=== PATIENT | female | born 1990 | race American Indian/Alaskan Native ===

== ENCOUNTER 2016-07-09 11:30 | Inpatient (IN) | payer MEDICAID ==
[2016-07-11] MEDS ORDERED: PITOCin/NS 20 UNIT/1000ML DRIP 1,000 ML IV SCH ×2 (05:30→12:33)
[2016-07-11] MEDS ORDERED: BICITRA PO SCH (05:30)
[2016-07-11] MEDS ORDERED: ANCEF/STERILE WATER 2 GM/20 ML 20 ML IV NR (05:30)
[2016-07-11] MEDS ORDERED: PEPCID IV SCH (05:30)
[2016-07-11] MEDS ORDERED: REGLAN IV SCH (05:30)
[2016-07-11] MEDS: LACTATED RINGERS 1,500 ML IV NR ×2 (06:30→07:39)
[2016-07-11 07:18] LABS: Hematocrit 35.7 % (30.3-42.9); Hemoglobin 11.8 gm/dl (10.1-14.3); Mean Corpuscular HGB Conc 33 % (30-34); Mean Corpuscular Hemoglobin 30 pg (28-32); Mean Corpuscular Volume 89 fl (79-97); Platelet Count 232 K/mm3 (140-440); Red Cell Distribution Width 13.6 % (13.2-15.2); White Blood Count 4.9 K/mm3 (4.5-11.0)
--- NOTE | 2016-07-11 07:21 | Anesthesia Consultation ---
Anesthesia Consult and Med Hx Date of service: 07/11/16 - Airway Anesthetic Teeth Evaluation: Good (slightly chipped # 9) ROM Head & Neck: Adequate Mental/Hyoid Distance: Adequate Mallampati Class: Class II Intubation Access Assessment: Probably Good - Pre-Operative Health Status ASA Pre-Surgery Classification: ASA2 Proposed Anesthetic Plan: Spinal - Pulmonary Hx Asthma: No COPD: No Hx Pneumonia: No - Cardiovascular System Hx Hypertension: No - Central Nervous System Hx Seizures: No Hx Psychiatric Problems: No - Endocrine Hx Renal Disease: No Hx End Stage Renal Disease: No Hx Hypothyroidism: No Hx Hyperthyroidism: No - Hematic Hx Anemia: No Hx Sickle Cell Disease: No - Other Systems Hx Alcohol Use: No
--- NOTE | 2016-07-11 07:22 | Anesthesia Day of Surgery ---
Anesthesia Day of Surgery - Day of Surgery Patient Examined: Yes Patient H&P Reviewed: Yes Patient is NPO: Yes
--- NOTE | 2016-07-11 07:32 | History and Physical Report ---
History of Present Illness Date of examination: 07/11/16 Date of admission: 07/11/16 05:45 Chief complaint: Repeat C/S History of present illness: Past History : 4 Term Births: 2 Living Children: 2 Para: 2 Aborta: 1 Spont. 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 Past Medical History: Reviewed history from 12/10/2013 and no changes required: Negative Past Medical History Past Surgical History: Reviewed history from 06/08/2013 and no changes required: negative Past Medical History Anesthesia Complications: negative Anemia: negative Autoimmune Disorder: negative Bleeding Disorder: negative Blood Transfusions: negative Breast Disease: negative Diabetes: negative Heart Disease: negative Hypertension: negative Hepatitis/Liver Disease: negative Kidney Disease/UTI: negative Neurologic/Epilepsy/Migraines: negative Phlebitis/Varicosities: negative Psychiatric: negative Pulmonary Disease/Asthma: negative Thyroid Disease: negative Hospitalizations: negative Surgery (Non-securities dealer): negative Abnormal PAP: negative HALEY Exposure: negative Infertility: negative Uterine Anomaly: negative Uterine Surgery (not C/S): negative Other Gynecologic Problems: negative Social Hx: Patient is Smoking History: Patient has never smoked. Infection History Hx of STD: none HIV Risk Eval: no Hepatitis B Risk Eval: low risk Personal hx. of genital herpes: no Partner hx. of genital herpes: no Rash, Viral, or Febrile illness since last LMP? no Varicella/Chicken Pox Status: Previous Disease Genetic History Congenital Heart Defect: Mom: no Dad: no Jose Disease: Mom: no Dad: no Thalassemia Mom: no Dad: no Neural Tube Defect Mom: no Dad: no Down's Syndrome Mom: no Dad: no Zenon-Sachs Mom: no Dad: no Sickle Cell Disease/Trait Mom: no Dad: no Hemophilia Mom: no Dad: no Muscular Dystrophy Mom: no Dad: no Cystic Fibrosis Mom: no Dad: no Barnes Chorea Mom: no Dad: no Mental Retardation Mom: no Dad: no Fragile X Mom: no Dad: no Other Genetic/Chromosomal Disorder Mom: no Dad: no Child w/other defect Mom: no Dad: no Enviromental Exposures Xray Exposure: no Medication, drug, or alcohol use since LMP: no Chemical/Other Exposure: no Exposure to Cat Liter: no Hx of Parvovirus (Fifth Disease): no Occupational Exposure to Children: none Active Medications (reviewed today): None Current Allergies (reviewed today): No known allergies Past History - Obstetrical History Expected Date of Delivery: 07/14/16 Actual Gestation: 39 Week(s) 4 Day(s) : 4 Medications and Allergies Allergies Allergy/AdvReac Type Severity Reaction Status Date / Time No Known Allergies Allergy Unverified 12/14/13 08:45 Home Medications Medication Instructions Recorded Confirmed Last Taken Type Ibuprofen [Motrin 800 MG tab] 800 mg PO TID PRN #30 tablet 12/14/13 Unknown Rx Lidocain2.5%/Prilocai2.5% [Emla] 5 gm TP ONCE #1 tube 12/14/13 Unknown Rx oxyCODONE /ACETAMINOPHEN [Percocet 1 - 2 tab PO Q4HR PRN #30 tablet 12/14/13 Unknown Rx 5/325 mg] Pnv #116/Iron Fumarate/FA/Dha 1 each PO DAILY 12/16/13 12/16/13 12/13/13 23:00 History [Expecta Combo Pack] 325 Active Meds: Active Medications Citric Acid/Sodium Citrate (Bicitra) 30 ml PO ONCE WESTON Stop: 07/11/16 23:31 Diphenhydramine HCl (Benadryl) 12.5 mg IV Q2H PRN PRN Reason: Itching Famotidine (Pepcid) 20 mg IV ONCE WESTON Stop: 07/11/16 23:31 Hydromorphone HCl (Dilaudid) 0.5 mg IV Q4H PRN PRN Reason: breakthrough pain > 7/10 Cefazolin Sodium (Ancef/Sterile Water 2 Gm/20 Ml) 20 mls @ 80 mls/hr IV PREOP NR PRN Reason: Protocol Stop: 07/11/16 23:31 Lactated Ringer's (Lactated Ringers) 1,500 mls @ 2,250 mls/hr IV PREOP NR Stop: 07/11/16 23:31 Last Admin: 07/11/16 06:30 Dose: 999 mls/hr Oxytocin/Sodium Chloride (Pitocin/Ns 20 Unit/1000ml Drip) 1,000 mls @ 0 mls/hr IV TITR WESTON PRN Reason: Per Protocol Influenza Virus Vaccine Quadrival (Fluarix Quad [id number](36 Mos+)) 60 mcg IM .ONCE ONE Stop: 07/11/16 12:01 Ketorolac Tromethamine (Toradol) 30 mg IV Q6H PRN PRN Reason: Pain, Moderate (4-6) Stop: 07/16/16 07:22 Metoclopramide HCl (Reglan) 10 mg IV ONCE WESTON Stop: 07/11/16 23:31 Naloxone HCl (Narcan 0.4 Mg/1 Ml) 0.2 mg IV Q2MIN PRN PRN Reason: Res Rate </= 8 or 02 SAT < 92% Stop: 07/13/16 07:23 Ondansetron HCl (Zofran) 4 mg IV Q8H PRN PRN Reason: Nausea And Vomiting Sodium Chloride (Sodium Chloride Flush Syringe 10 Ml) 10 ml IV PRN NR - Vital Signs Vital signs: Vital Signs Pulse Pulse Ox 64 100 07/11/16 06:25 07/11/16 06:25 Temp Pulse Resp BP Pulse Ox 74 100 07/11/16 07:25 07/11/16 07:25 - Physical Exam Breasts: Positive: deferred Cardiovascular: Regular rate Lungs: Positive: Normal air movement Abdomen: Positive: normal appearance Uterus: Positive: enlarged Extremities: Positive: normal Deep Tendon Reflex Grade: Normal +2 Results Result Diagrams: 07/11/16 06:30 All other labs normal. Assessment and Plan - Patient Problems (1) 39 weeks gestation of Current Visit: No Status: Acute (2) Maternal care due to low transverse uterine scar from previous delivery Current Visit: Yes Status: Acute Plan to address problem: Desires repeat c/s, she declines sterilization. Consents signed. She was informed she has an increased risks for complications that may be fatal with each subsrquent c/s
[2016-07-11] MEDS ORDERED: SODIUM CHLORIDE FLUSH SYRINGE 10 ML IV PRN (08:00)
[2016-07-11] MEDS ORDERED: ZOFRAN IV PRN (08:00)
[2016-07-11] MEDS ORDERED: DILAUDID IV PRN (08:00)
[2016-07-11] MEDS ORDERED: BENADRYL IV PRN (08:00)
[2016-07-11] MEDS ORDERED: NARCAN 0.4 MG/1 ML IV PRN ×2 (08:00→12:33)
[2016-07-11] MEDS ORDERED: MORPHINE ONE (08:01)
[2016-07-11] MEDS ORDERED: WATER FOR IRRIG STERILE IR ONE (08:06)
[2016-07-11] MEDS ORDERED: NACL 0.9% IR ONE (08:06)
[2016-07-11] MEDS ORDERED: ePHEDrine SULFATE ONE (08:19)
--- NOTE | 2016-07-11 09:18 | Operative Report ---
Operative Report Operative Report: Date of procedure: 07/11/2016 Pre-operative diagnosis: 1. Intrauterine at 39 weeks 2. Previous desires repeat Post-operative diagnosis: 1. Intrauterine at 39 weeks 2. Previous desires repeat Procedure name(s): Low transverse section Surgeon: Deysi Daley MD Residential Sales Associate: [] Anesthesia: Spinal epidural EBL: 800 mL Complications: None Findings: Liveborn female infant. Apgars 8 at 1 minute 9 at 5 minutes. Weight 6 lbs. 12 oz. Grossly normal uterus, tubes, ovaries, Procedure: After risks, benefits, and complications and alternatives and consequences, were discussed with patient, and she voiced her understanding and desired to proceed. Patient was taken to the OR, where spinal anesthesia was placed. She was then placed in the left lateral tilt position, and prepped and draped in the usual sterile fashion. After timeout was performed, a Pfannenstiel incision was made and extended to the fascia. The fascia was incised and extended in a lateral direction. The overlying fascia was sharply dissected away from the underlying rectus muscles in the superior-inferior direction. The midline was entered bluntly. The vesicouterine fold was incised and with blunt and sharp dissection the bladder flap was created. A transverse incision was made in the lower uterine segment and extended in the superior lateral direction with finger fractionation. Clear fluid was noted. The was delivered from the cephalic position.The cord was doubly clamped and cut. The 's mouth and nose were bulb suctioned. And the infant was given to the resuscitation team present. The placenta was manually extracted. The uterus was exteriorized and cleaned any products of conception and placental tissue. The incision was reapproximated using 0 Vicryl in a running interlocking stitch. Grossly normal tubes and ovaries were noted. Once hemostasis was noted, the uterus was allowed back into the pelvic cavity. The pelvis was irrigated with warm normal saline. Once hemostasis was noted, Tisseel was applied to the anterior surface of the incision. Once hemostasis was noted, attention was turned to the rectus muscles. Once hemostasis was noted, the fascia was reapproximated using 0 Vicryl in a simple running stitch. Once hemostasis was noted, the incision was irrigated with normal saline. The incision was then reapproximated using 4-0 Vicryl on a Elder needle in a subcuticular manner. Patient tolerated the procedure well she was taken to recovery room in stable condition. Counts were correct 3
--- NOTE | 2016-07-11 10:08 | Post Anesthesia Evaluation ---
- Post Anesthesia Evaluation Patient Participated: Yes Airway Patent: Yes Stable Respiratory Function: Yes Temp > 96.8F: Yes Pain Manageable: Yes Adequeate Hydration: Yes Anesthesia Complications: No Block Receding Appropriately: Yes
[2016-07-11] MEDS: TORADOL IV PRN ×2 (10:31→17:30)
[2016-07-11] MEDS ORDERED: FLUARIX QUAD 2016-2017(36 MOS+) IM ONE (12:00)
[2016-07-11] MEDS ORDERED: PROAIR IH ONE (12:30)
[2016-07-11] MEDS ORDERED: TYLENOL PO PRN (12:33)
[2016-07-11] MEDS ORDERED: MILK OF MAGNESIA PO PRN (12:33)
[2016-07-11] MEDS ORDERED: PHENERGAN PR PRN (12:33)
[2016-07-11] MEDS ORDERED: MYLICON PO PRN (12:33)
[2016-07-11] MEDS ORDERED: D5LR 1,000 ML IV SCH (12:33)
[2016-07-11] MEDS ORDERED: SENOKOT PO PRN (12:33)
[2016-07-11] MEDS ORDERED: TUCKS PAD TP PRN (12:33)
[2016-07-11] MEDS ORDERED: LANSINOH TP PRN (12:33)
[2016-07-11] MEDS ORDERED: TYLENOL PR PRN (12:33)
[2016-07-11] MEDS ORDERED: SODIUM CHLORIDE FLUSH SYRINGE 10 ML IV NR (12:33)
[2016-07-11] MEDS ORDERED: ANUCORT-HC PR PRN (12:33)
[2016-07-11] MEDS: ANCEF/NS 1 GM/50 ML 50 ML IV SCH (16:25)
[2016-07-11 22:22] LABS: Hemoglobin 11.1 gm/dl (10.1-14.3)
[2016-07-12] MEDS: ANCEF/NS 1 GM/50 ML 50 ML IV SCH (01:23)
[2016-07-12] MEDS: TORADOL IV PRN (01:24)
[2016-07-12] MEDS ORDERED: BOOSTRIX IM ONE (06:00)
--- NOTE | 2016-07-12 08:16 | Progress Note ---
Assessment and Plan Patient reports feeling well, no complaints. H&H , VSSAF, lochia scant, ambulating without difficulty. Plan for d/c home tomorrow if stable. - Patient Problems (1) delivery delivered Current Visit: No Status: Acute Subjective - Subjective Date of service: 07/12/16 Principal diagnosis: postop day #1, s/p repeat c/s Patient reports: appetite normal, voiding normally, pain well controlled, flatus , ambulating normally, no dizzy ambulation, no bowel movement, no nauseated : doing well, nursing well Objective - Vital Signs Latest vital signs: Vital Signs Temp Pulse Pulse Resp BP BP 07/12/16 05:25 98.3 F 62 24 103/64 07/12/16 00:16 98.8 F 85 20 110/72 07/11/16 20:25 98.3 F 66 20 118/80 07/11/16 16:02 97.9 F 66 18 118/70 07/11/16 10:45 97.4 F L 50 L 18 143/80 07/11/16 10:31 15 07/11/16 10:15 53 L 12 130/78 07/11/16 10:00 51 L 12 123/75 07/11/16 09:50 12 131/74 07/11/16 09:45 52 L 12 122/76 07/11/16 09:40 55 L 12 122/76 07/11/16 09:35 53 L 12 127/73 07/11/16 09:30 58 L 12 121/75 07/11/16 09:25 58 L 13 121/71 07/11/16 09:20 62 14 121/70 07/11/16 09:15 97.5 F L 74 12 122/65 Intake and Output 07/11/16 07/12/16 07/12/16 22:59 06:59 14:59 Intake Total 360 480 Output Total 750 800 Balance -390 -320 Intake: Oral 360 240 Intake, Free Water 240 Output: Urine 750 800 Indwelling Catheter 750 800 Other: Total, Intake Amount 360 240 Total, Output Amount 750 800 - Exam Breasts: Present: normal, Cardiovascular: Present: Regular rate Lungs: Present: Clear to auscultation, Normal air movement Abdomen: Present: normal appearance, soft Vulva: both: normal Uterus: Present: normal, firm, fundal height at umbilicus Extremities: Present: normal Deep Tendon Reflex Grade: Normal +2 Incision: Present: normal, dry, intact
[2016-07-12] MEDS: MOTRIN PO PRN ×2 (08:55→13:45)
[2016-07-12] MEDS: PERCOCET 5/325 PO PRN ×3 (08:55→20:37)
--- NOTE | 2016-07-12 09:56 | Progress Note ---
Subjective Date of service: 07/12/16 Principal diagnosis: postop day #1, s/p repeat c/s Interval history: 1st POD after Patient is in the bed, comfortable. Ambulated well. Pain is well controlled with pain meds. No residual neurological deficit. No anesthesia complications Objective - Constitutional Vitals: Vital Signs - 12hr 07/12/16 07/12/16 07/12/16 00:16 05:25 08:13 Temperature 98.8 F 98.3 F 98.3 F Pulse Rate [ 85 62 76 Right Radial] Respiratory 20 24 16 Rate Blood Pressure 110/72 103/64 126/66 [Right Arm] - Labs CBC & Chem 7: 07/11/16 21:29
[2016-07-13] MEDS: MOTRIN PO PRN ×2 (06:18→13:03)
--- NOTE | 2016-07-13 09:59 | Progress Note ---
Assessment and Plan Patient without complaints this morning, reports good success with and normal discomfort during ambulation. VSSAF, Lochia scant, incision intact with some serosanginous drainage but no active bleeding. discussed wound care. Patient would like to stay tonight and go home early tomorrow morning, around 7am. Will continue postop pathway and d/c in AM. f/u scheduled in 1 week. - Patient Problems (1) delivery delivered Current Visit: No Status: Acute Subjective - Subjective Date of service: 07/13/16 Principal diagnosis: postop day #2, s/p repeat c/s Patient reports: appetite normal, voiding normally, pain well controlled, flatus , ambulating normally, no dizzy ambulation, no nauseated : doing well, nursing well Objective - Vital Signs Latest vital signs: Vital Signs Temp Pulse Pulse Resp BP 07/13/16 08:07 98.7 F 80 20 108/52 07/13/16 06:18 18 07/13/16 01:00 98.4 F 71 16 106/62 07/12/16 20:37 18 07/12/16 15:47 98.2 F 65 14 111/66 Intake and Output 07/12/16 07/13/16 07/13/16 22:59 06:59 14:59 Intake Total 240 Balance 240 Intake: Oral 240 Other: Total, Intake Amount 240 # Voids Void 1 - Exam Breasts: Present: normal Cardiovascular: Present: Regular rate Lungs: Present: Clear to auscultation, Normal air movement Abdomen: Present: normal appearance, soft Vulva: both: normal Uterus: Present: normal, firm, fundal height at umbilicus Extremities: Present: normal Incision: Present: normal, dry (steristrips noted to have some drainage, no active bleeding from incision, appears to be intact.), intact
--- NOTE | 2016-07-13 10:03 | Discharge Summary ---
Providers - Providers Date of Admission: 07/11/16 05:45 Date of discharge: 07/14/16 Attending physician: MAXWELL PAZ 07/11/16 12:33 Consult to Muck Hauler [CONS] Routine Reason For Exam: Primary care physician: MAXWELL PAZ Hospitalization Reason for admission: section Delivery: Procedure: repeat low transverse Incision: normal, intact Other procedures: none complications: none Discharge diagnosis: IUP at term delivered [place] baby: female Hospital course: uncomplicated c/s delivery Condition at discharge: Good Disposition: DISCHARGED TO HOME OR SELFCARE - Discharge Diagnoses (1) delivery delivered Status: Acute Plan - Discharge Medications Prescriptions: Ibuprofen [Motrin 800 MG tab] 800 mg PO TID PRN #30 tablet PRN Reason: Pain oxyCODONE /ACETAMINOPHEN [Percocet 5/325 mg] 1 - 2 tab PO Q4HR PRN #30 tablet PRN Reason: Pain - Provider Discharge Summary Activity: routine, no sex for 6 weeks, no heavy lifting 4 weeks, no strenuous exercise Diet: routine Instructions: routine Additional instructions: [] Smoking cessation referral if applicable(refer to patient education folder for contact #) [] Refer to [facility]'s [facility] Booklet Call your doctor immediately for: * Fever > 100.5 * Heavy vaginal bleeding ( >1 pad per hour) * Severe persistent headache * Shortness of breath * Reddened, hot, painful area to leg or breast * Drainage or odor from incision. * Keep incision clean and dry at all times and follow doctor's instructions regarding bathing/showering - Follow up plan Follow up: MAXWELL PAZ MD [Primary Care Provider] - 7 Days (Congratulations! Please keep your incision check appointment in 1 week. Call [phone] for any questions or concerns. )
[2016-07-13] MEDS ORDERED: FLUARIX QUAD 2016-2017(36 MOS+) IM ONE (12:00)
[2016-07-13] MEDS: PERCOCET 5/325 PO PRN ×2 (13:02→21:50)
[2016-07-14] MEDS: MOTRIN PO PRN ×2 (04:05→11:00)
[2016-07-14] MEDS: PERCOCET 5/325 PO PRN ×2 (04:05→11:00)
[2016-07-14 12:21] VITALS: BP 108/60
== END 2016-07-14 13:45 | disposition home or self-care (01) | DRG 766 ==
LOC: APU 07-11 05:45 → OB 07-11 10:47
PROVIDERS: ADMIT Obstetrics & Gynecology; ATTEND Obstetrics & Gynecology
PROC: 10D00Z1 Extraction of Products of Conception, Low, Open Approach (ICD-10-PCS; principal; 2016-07-11)
PROC: 00HU33Z Insertion of Infusion Device into Spinal Canal, Percutaneous Approach (ICD-10-PCS; 2016-07-11)
PROC: 3E0R3CZ (ICD-10-PCS; 2016-07-11)
DX: O34.211 Maternal care for low transverse scar from previous cesarean delivery (principal); Z3A.39 39 weeks gestation of pregnancy; Z37.0 Single live birth
CPT/HCPCS: 36415; 85014; 85018; 85027; 86592; 86850; 86900; 86901; 90471; 90686; 90715; 99211; A6250; C9250; G0008; G0463; J0690; J1170; J1885; J2270; J2590; J2765; J7120

== ENCOUNTER 2017-02-23 01:57 | Emergency (ER) | payer MEDICAID ==
[2017-02-23] MEDS ORDERED: MOTRIN PO ONE (03:58)
[2017-02-23] MEDS ORDERED: MOTRIN ONE (04:03)
[2017-02-23] MEDS ORDERED: AUGMENTIN 875 MG PO ONE (06:37)
--- NOTE | 2017-02-23 06:40 | Emergency Department Report ---
HPI - General Chief Complaint: Earache Time Seen by Provider: 02/23/17 06:36 - HPI HPI: This is a 26-year-old female presents to the emergency department with complaint of right ear pain and a sensation of wetness within the right ear that has been going on since yesterday. She denies any fever, nausea, vomiting , sore throat, chest pain, shortness of breath, cough. She denies any history of ear infections or tympanostomy tubes as a child. She does not currently have a primary care physician. She did not take anything for her symptoms prior to presentation. No recent travel or sick contacts at home. ED Past Medical Hx - Past Medical History Previous Medical History?: No Hx Hypertension: No Hx Congestive Heart Failure: No Hx Diabetes: No Hx Deep Vein Thrombosis: No Hx Renal Disease: No Hx Sickle Cell Disease: No Hx Seizures: No Hx Asthma: No Hx COPD: No Hx HIV: No - Surgical History Past Surgical History?: No Additional Surgical History: x 2. - Social History Smoking Status: Never Smoker Substance Use Type: None - Medications Home Medications: Home Medications Medication Instructions Recorded Confirmed Last Taken Type Ibuprofen [Motrin 800 MG tab] 800 mg PO TID PRN #30 tablet 12/14/13 07/13/16 Unknown Rx Lidocain2.5%/Prilocai2.5% [Emla] 5 gm TP ONCE #1 tube 12/14/13 07/13/16 Unknown Rx oxyCODONE /ACETAMINOPHEN [Percocet 1 - 2 tab PO Q4HR PRN #30 tablet 12/14/13 Unknown Rx 5/325 mg] Pnv #116/Iron Fumarate/FA/Dha 1 each PO DAILY 12/16/13 07/13/16 12/13/13 23:00 History [Expecta Combo Pack] 325 Ibuprofen [Motrin 800 MG tab] 800 mg PO TID PRN #30 tablet 07/11/16 Unknown Rx oxyCODONE /ACETAMINOPHEN [Percocet 1 - 2 tab PO Q4HR PRN #30 tablet 07/11/16 Unknown Rx 5/325 mg] Amoxicillin/K Clav Tab [Augmentin 1 each PO BID #20 tablet 02/23/17 Unknown Rx 875MG TAB] ED Review of Systems ROS: Stated complaint: RT EAR PAIN Other details as noted in HPI Comment: All other systems reviewed and negative Constitutional: denies: chills, fever Eyes: denies: eye pain, eye discharge, vision change ENT: ear pain. denies: dental pain Respiratory: denies: cough, shortness of breath, wheezing Cardiovascular: denies: chest pain, palpitations Gastrointestinal: denies: abdominal pain, nausea, diarrhea Genitourinary: denies: urgency, dysuria, discharge Musculoskeletal: denies: back pain, joint swelling, arthralgia Skin: denies: rash, lesions Neurological: denies: headache, weakness, paresthesias Physical Exam - Physical Exam Vital Signs: Vital Signs 02/23/17 03:46 Temperature 98.4 F Pulse Rate 75 Respiratory 12 Rate Blood Pressure 111/76 Blood Pressure 111/76 [Left] O2 Sat by Pulse 100 Oximetry Physical Exam: GENERAL: The patient is well-developed well-nourished. HENT: Normocephalic. Atraumatic. Patient has moist mucous membranes. Normal -appearing left external ear canal and tympanic membrane. Normal-appearing right external ear canal. The right tympanic membrane is abnormal in appearance. The bottom one third of the TM appears dark and as if there is blood behind the TM or there is an eschar that is formed. In the middle of the TM, heading superior and anterior, there is a streak of what appears to be purulence. The remaining portion of the TM is very erythematous and there is no visible light reflex. EYES: Extraocular motions are intact. Pupils equal reactive to light bilaterally. NECK: Supple. Trachea is midline. There is a small tender nodule just below the right ear that is most likely consistent with a lymph node as it appears mobile and is only a few millimeters in diameter. CHEST/LUNGS: Clear to auscultation. There is no respiratory distress noted. HEART/CARDIOVASCULAR: Regular. There is no tachycardia. There is no gallop rub or murmur. ABDOMEN: Abdomen is soft, nontender. Patient has normal bowel sounds. There is no abdominal distention. SKIN: Skin is warm and dry. NEURO: The patient is awake, alert, and oriented. The patient is cooperative. The patient has no focal neurologic deficits. The patient has normal speech. MUSCULOSKELETAL: There is no tenderness or deformity. There is no limitation range of motion. There is no evidence of acute injury. ED Course Vital Signs 09/03/17 03:46 Temperature 98.4 F Pulse Rate 75 Respiratory 12 Rate Blood Pressure 111/76 Blood Pressure 111/76 [Left] O2 Sat by Pulse 100 Oximetry ED Medical Decision Making - Medical Decision Making 26-year-old female presents with some right ear pain and a feeling of wetness or moisture within the ear. No fever and vital signs are stable. On physical exam the patient does have an abnormal-appearing right tympanic membrane with a darkness in the lower portion that could be blood behind the eardrum versus an eschar and a streak within the middle of the eardrum and it looks to be some type of purulence. She was given a dose of antibiotics here and placed on a course of antibiotics for home. She was given 3 different ear nose throat physicians for follow-up and told to do so as soon as possible. She will return to the ER with any worsening of her symptoms or any acute distress. - Differential Diagnosis otitis media, otitis externa, malignancy, perforation Critical Care Time: No Critical care attestation.: If time is entered above; I have spent that time in minutes in the direct care of this critically ill patient, excluding procedure time. ED Disposition Clinical Impression: Otitis media Qualifiers: Otitis media type: suppurative Chronicity: acute Laterality: right Recurrence: not specified as recurrent Spontaneous tympanic membrane rupture: without spontaneous rupture Qualified Code(s): H66.001 - Acute suppurative otitis media without spontaneous rupture of ear drum, right ear Disposition: DC-01 TO HOME OR SELFCARE Is pt being admited?: No Condition: Stable Instructions: Otitis Media (ED) Additional Instructions: Please follow up with an ENT (Ear, Nose Throat) physician as soon as possible. Also follow-up with your primary care physician. Take the antibiotics as prescribed. Return to the emergency Department with any worsening of your ear pain, any change in hearing, discharge from the ear, expansion of the swelling below the ear or any acute distress. Prescriptions: Amoxicillin/K Clav Tab [Augmentin 875MG TAB] 1 each PO BID #20 tablet Referrals: ESTEFANI APPIAH MD [Primary Care Provider] - 3-5 Days ROB NASSAR MD [Staff Physician] - NIK CLAYTON DELAROSA MD [Staff Physician] - NIK FRANCY VAZQUEZ MD [Staff Physician] - NIK Time of Disposition: 06:45
[2017-02-23 06:53] VITALS: BP 111/75
== END 2017-02-23 06:54 | disposition home or self-care (01) ==
LOC: ED 01:57
DX: H66.001 Acute suppurative otitis media without spontaneous rupture of ear drum, right ear (principal)
CPT/HCPCS: 99282